=== PATIENT | female | born 1960 | race African-American/Black ===

== ENCOUNTER 2020-02-06 21:35 | Emergency (ER) | payer SELFPAY ==
[~2020-02-06] VITALS: Ht 157.5 cm; Wt 55.0 kg
[2020-02-06 21:43] VITALS: BP 176/98
== END 2020-02-06 22:02 | disposition left against medical advice (07) ==
LOC: ER 21:35
DX: Z53.21 Procedure and treatment not carried out due to patient leaving prior to being seen by health care provider (principal)